=== PATIENT | female | born 1960 | race African-American/Black ===

== ENCOUNTER 2018-09-23 22:50 | Inpatient (IN) | payer MEDICAID ==
[~2018-09-23] VITALS: Ht 149.9 cm; Wt 61.7 kg
[~2018-09-23 22:50] MED LIST: ARIP20TA2 PO; COR6 PO; MIRT30TA PO
[2018-09-23] MEDS ORDERED: METHYLPREDNISOLONE SOD SUCC 125 MG/2 ML VIAL IV STA (22:53)
[2018-09-23] MEDS ORDERED: ALBUTEROL (0.083%) 2.5MG/3ML NEB HHN STA (22:53)
[2018-09-23] MEDS ORDERED: IPRATROPIUM BROMIDE (0.02%) 0.5MG/2.5ML NEB HHN STA (22:53)
[2018-09-23] MEDS ORDERED: MAGNESIUM 2 G PREMIX 50 ML IV ONE (23:00)
[2018-09-24 00:20] LABS: HEMATOCRIT 40.9 % (36.0-48.0); HEMOGLOBIN 12.8 g/dL (12.0-16.0); MEAN CORPUSCULAR VOLUME 83.6 fL (81.0-99.0); PLATELET 228 x1000/uL (130-400); RED CELL DISTRIBUTION WIDTH 22.3 % (11.6-14.6)
[2018-09-24 00:30] LABS: CHLORIDE 103 mEq/L (98-107)
[2018-09-24] MEDS ORDERED: ASPIRIN 325MG EC TABLET PO ONE (00:45)
[2018-09-24] MEDS ORDERED: AZITHROMYCIN 500 MG in DEXT 5% WATER 250 ML IV SCH (01:00)
[2018-09-24] MEDS ORDERED: VANCOMYCIN 1 G PREMIX 200 ML IV SCH (01:00)
[2018-09-24] MEDS ORDERED: CEFEPIME HCL 2000MG/VIAL INJ IV ONE (01:00)
[2018-09-24] MEDS ORDERED: IPRATROPIUM BROMIDE (0.02%) 0.5MG/2.5ML NEB HHN STA (02:20)
[2018-09-24] MEDS ORDERED: ALBUTEROL (0.083%) 2.5MG/3ML NEB HHN STA (02:20)
[2018-09-24] MEDS ORDERED: CEFEPIME 2,000 MG in DEXT 5% WATER 100 ML IV SCH (03:00)
[2018-09-24] MEDS ORDERED: CEFEPIME 2,000 MG in DEXTROSE 5% WATER 50 ML IV SCH (03:00)
[2018-09-24 06:25] VITALS: BP 137/89
[2018-09-24 07:00] VITALS: BP 143/93
[2018-09-24 08:00] VITALS: BP 143/93
[2018-09-24] MEDS ORDERED: DIGO125T82 MT (08:25)
[2018-09-24] MEDS ORDERED: ISOS10TA2 MT (08:25)
[2018-09-24] MEDS ORDERED: FURO40TA5 PO (08:25)
[2018-09-24] MEDS ORDERED: atrovastatin PO (08:25)
[2018-09-24] MEDS ORDERED: SPIR25TA6 MT (08:25)
[2018-09-24] MEDS ORDERED: ASPI-1159 MT (08:25)
[2018-09-24] MEDS ORDERED: HYDR-4134 PO (08:25)
[2018-09-24] MEDS ORDERED: MOME13HF INH (08:25)
[2018-09-24] MEDS ORDERED: CLONIDINE 0.1MG TABLET PO PRN (08:45)
[2018-09-24] MEDS ORDERED: ONDANSETRON HCL 4MG/2ML INJ IV PRN (08:45)
[2018-09-24] MEDS ORDERED: MEDICATION NOT ON FORMULARY EA (Hydralazine Hcl 25 MG) PO SCH (08:45)
[2018-09-24] MEDS ORDERED: DIPHENHYDRAMINE 50MG/ML VIAL IV PRN (08:45)
[2018-09-24] MEDS ORDERED: ISOSORBIDE DINITRATE MT PRN (08:45)
[2018-09-24] MEDS ORDERED: ENOXAPARIN 40MG/0.4ML SYR SUBCUT SCH (08:45)
[2018-09-24] MEDS ORDERED: LORAZEPAM 2MG/ML CPJ IV PRN (08:45)
[2018-09-24] MEDS ORDERED: MAGNESIUM/ALUMINUM HYDROXIDE/SIMETHICONE 30ML UDC PO PRN (08:45)
[2018-09-24] MEDS ORDERED: DOCUSATE SODIUM 100MG CAPSULE PO PRN (08:45)
[2018-09-24] MEDS ORDERED: MEDICATION NOT ON FORMULARY EA (Aripiprazole (Abilify) 1 TAB) PO SCH (09:00)
[2018-09-24] MEDS ORDERED: FORMOTEROL INH SCH (09:00)
[2018-09-24] MEDS: ASPIRIN 81MG TABLET PO SCH (09:00)
[2018-09-24] MEDS ORDERED: MOMETASONE INH SCH (09:00)
[2018-09-24] MEDS ORDERED: [UNRECOGNIZED DRUG - OTHER] INH SCH (09:00)
[2018-09-24] MEDS ORDERED: MEDICATION NOT ON FORMULARY EA (Aspirin (Aspirin Low Dose) 1 TAB) MT SCH (09:00)
[2018-09-24] MEDS: CARVEDILOL 6.25 MG TABLET PO SCH (09:49)
[2018-09-24] MEDS: ISOSORBIDE DINITRATE 10MG TABLET PO SCH ×2 (09:50→17:33)
[2018-09-24] MEDS: HYDRALAZINE HCL 25MG TABLET PO SCH ×3 (09:50→21:06)
[2018-09-24] MEDS ORDERED: PIPERACILLIN/TAZ 3.375G PREMIX 50 ML IV SCH (10:00)
[2018-09-24] MEDS: METHYLPREDNISOLONE SOD SUCC 40 MG/ML VIAL IV SCH ×2 (11:04→17:34)
[2018-09-24] MEDS: GUAIFENESIN 200MG/10ML SUGAR FREE UDC PO PRN ×2 (11:04→18:03)
[2018-09-24] MEDS: ENOXAPARIN 40MG/0.4ML SYR SUBCUT SCH (11:06)
[2018-09-24 12:00] VITALS: BP 132/74
[2018-09-24] MEDS: ARIPIPRAZOLE 10MG TABLET PO SCH (13:20)
[2018-09-24] MEDS: ACETAMINOPHEN 325MG TABLET PO PRN ×2 (14:43→14:45)
[2018-09-24 16:00] VITALS: BP 132/52
[2018-09-24 16:11] LABS: CLARITY URINE CLEAR (CLEAR); COLOR URINE YELLOW (YELLOW); KETONES URINE NEGATIVE (NEGATIVE); LEUKOCYTE ESTERASE URINE NEGATIVE (NEGATIVE); NITRITE URINE NEGATIVE (NEGATIVE); OCCULT BLOOD URINE NEGATIVE (NEGATIVE); PROTEIN URINE TRACE (NEGATIVE); SPECIFIC GRAVITY URINE 1.011 (1.005-1.030); UROBILINOGEN URINE 0.2 E.U./dL (0.2-1.0)
[2018-09-24 16:29] LABS: *AMPHETAMINES SCREEN URINE NEGATIVE (NEGATIVE); *BARBITURATES SCREEN URINE NEGATIVE (NEGATIVE); *BENZODIAZEPINES SCREEN URINE NEGATIVE (NEGATIVE)
[2018-09-24 16:30] LABS: *COCAINE SCREEN URINE PRESUMTIVE POSITIVE (NEGATIVE); CANNABINOID URINE SCREEN NEGATIVE (NEGATIVE); METHADONE URINE SCREEN NEGATIVE (NEGATIVE); OPIATES URINE SCREEN NEGATIVE (NEGATIVE); PHENCYCLIDINE URINE SCREEN NEGATIVE (NEGATIVE)
[2018-09-24] MEDS ORDERED: HYDROCODONE/ACETAMINOPHEN 5/325MG TABLET PO PRN (16:45)
[2018-09-24] MEDS ORDERED: MIRTAZAPINE PO SCH (17:00)
[2018-09-24] MEDS: MONTELUKAST SODIUM 10MG TABLET PO SCH (17:33)
[2018-09-24] MEDS: DIGOXIN 125MCG TABLET PO SCH (17:34)
[2018-09-24] MEDS: IPRATROPIUM/ALBUTEROL 0.5-3(2.5)MG/3ML NEB INH PRN ×2 (18:05→20:30)
[2018-09-24 20:00] VITALS: BP 146/89
[2018-09-24] MEDS: ALBUTEROL (0.083%) 2.5MG/3ML NEB HHN SCH (20:32)
[2018-09-24] MEDS: BUDESONIDE 0.5MG/2ML NEB HHN SCH (20:32)
[2018-09-24] MEDS ORDERED: ATROVASTATIN PO SCH (21:00)
[2018-09-24] MEDS: ATORVASTATIN CALCIUM 40MG TABLET PO SCH (21:06)
[2018-09-24] MEDS: MIRTAZAPINE 30MG TABLET PO SCH (21:06)
[2018-09-24] MEDS: PIPERACILLIN/TAZ 3.375G PREMIX 50 ML IV SCH (21:06)
[2018-09-25 00:45] VITALS: BP 157/102
[2018-09-25] MEDS: METHYLPREDNISOLONE SOD SUCC 40 MG/ML VIAL IV SCH ×3 (02:33→21:13)
[2018-09-25 04:00] VITALS: BP 153/88
[2018-09-25] MEDS: ALBUTEROL (0.083%) 2.5MG/3ML NEB HHN SCH ×2 (04:36→07:33)
[2018-09-25] MEDS: PIPERACILLIN/TAZ 3.375G PREMIX 50 ML IV SCH ×3 (05:21→21:13)
[2018-09-25] MEDS: HYDRALAZINE HCL 25MG TABLET PO SCH ×3 (05:21→21:14)
[2018-09-25] MEDS: BUDESONIDE 0.5MG/2ML NEB HHN SCH ×2 (07:32→19:49)
[2018-09-25 08:00] VITALS: BP 145/86
[2018-09-25] MEDS: ENOXAPARIN 40MG/0.4ML SYR SUBCUT SCH ×2 (09:00→09:51)
[2018-09-25] MEDS ORDERED: ARIPIPRAZOLE 10MG TABLET PO SCH (09:00)
[2018-09-25] MEDS: ISOSORBIDE DINITRATE 10MG TABLET PO SCH ×2 (09:00→17:47)
[2018-09-25 09:29] LABS: BG BASE EXCESS 6.2 mmol/L (-2.0-2.0); BG CARBOXYHEMOGLOBIN 0.7 % (0.5-1.5); BG DEOXYHEMOGLOBIN 10.3 % (0.0-5.0); BG FRACTION INSPIRED OXYGEN 24; BG HCO3 ACT 32.5 mmol/L (22.0-26.0); BG METHEMOGLOBIN 0.3 % (0.0-1.5); BG OXYGEN SATURATION 89.6 % (92.0-98.5); BG OXYHEMOGLOBIN 88.7 % (94.0-97.0); BG SAMPLE SITE RIGHT BRACHIAL; BG TOTAL HEMOGLOBIN 12.2 g/dL (12.0-18.0); BG VENT MODE NASAL CANNULA
[2018-09-25] MEDS: CARVEDILOL 6.25 MG TABLET PO SCH (09:49)
[2018-09-25] MEDS: ARIPIPRAZOLE 10MG TABLET PO SCH (09:50)
[2018-09-25] MEDS: POTASSIUM CHLORIDE 10MEQ TABLET SR PO SCH (09:50)
[2018-09-25] MEDS: LISINOPRIL 20MG TABLET PO SCH (09:50)
[2018-09-25] MEDS: ASPIRIN 81MG TABLET PO SCH (09:50)
[2018-09-25] MEDS: GUAIFENESIN 200MG/10ML SUGAR FREE UDC PO PRN (09:51)
[2018-09-25] MEDS: FUROSEMIDE 40MG/4ML VIAL IVP SCH (09:51)
[2018-09-25 12:00] VITALS: BP 148/86
[2018-09-25] MEDS: NICOTINE 14MG PATCH TD SCH (14:40)
[2018-09-25] MEDS: IPRATROPIUM/ALBUTEROL 0.5-3(2.5)MG/3ML NEB HHN SCH ×2 (15:44→19:49)
[2018-09-25 16:00] VITALS: BP 146/88
[2018-09-25 17:22] LABS: HEMATOCRIT. 35.5 % (36.0-48.0); HEMOGLOBIN. 11.4 g/dL (12.0-16.0); MEAN CORPUSCULAR HEMOGLOBIN 26.6 pg (28.0-32.0); PLATELET 171 x1000/uL (130-400); RED BLOOD CELL COUNT 4.27 mill/uL (4.2-5.4); RED CELL DISTRIBUTION WIDTH 21.9 % (11.6-14.6)
[2018-09-25] MEDS: DIGOXIN 125MCG TABLET PO SCH (17:47)
[2018-09-25] MEDS: MONTELUKAST SODIUM 10MG TABLET PO SCH (17:47)
[2018-09-25 18:09] LABS: PLATELET ESTIMATE NORMAL
[2018-09-25 20:00] VITALS: BP 134/74
[2018-09-25] MEDS: MIRTAZAPINE 30MG TABLET PO SCH (21:14)
[2018-09-25] MEDS: ATORVASTATIN CALCIUM 40MG TABLET PO SCH (21:14)
[2018-09-26] VITALS (7 sets, daily range): BP systolic 119–163; BP diastolic 67–106
[2018-09-26] MEDS: IPRATROPIUM/ALBUTEROL 0.5-3(2.5)MG/3ML NEB HHN SCH ×7 (00:16→20:00)
[2018-09-26] MEDS: PIPERACILLIN/TAZ 3.375G PREMIX 50 ML IV SCH ×3 (05:05→21:38)
[2018-09-26] MEDS: HYDRALAZINE HCL 25MG TABLET PO SCH ×3 (05:05→21:37)
[2018-09-26 08:05] LABS: HEMOGLOBIN. 11.8 g/dL (12.0-16.0); MEAN CORPUSCULAR HEMOGLOBIN 26.3 pg (28.0-32.0); MEAN CORPUSCULAR VOLUME 82.6 fL (81.0-99.0); MEAN PLATELET VOLUME 8.7 fl (7.4-10.4); PLATELET 178 x1000/uL (130-400); RED BLOOD CELL COUNT 4.48 mill/uL (4.2-5.4); RED CELL DISTRIBUTION WIDTH 21.6 % (11.6-14.6)
[2018-09-26] MEDS: BUDESONIDE 0.5MG/2ML NEB HHN SCH ×2 (09:06→20:29)
[2018-09-26 09:31] LABS: BG BASE EXCESS 7.3 mmol/L (-2.0-2.0); BG CARBOXYHEMOGLOBIN 0.9 % (0.5-1.5); BG DEOXYHEMOGLOBIN 11.8 % (0.0-5.0); BG FRACTION INSPIRED OXYGEN 21; BG METHEMOGLOBIN 0.2 % (0.0-1.5); BG OXYGEN SATURATION 88.1 % (92.0-98.5); BG OXYHEMOGLOBIN 87.1 % (94.0-97.0); BG PCO2 50.9 mmHg (35.0-45.0); BG PH 7.429 (7.350-7.450); BG SAMPLE SITE LEFT BRACHIAL; BG TOTAL HEMOGLOBIN 12.6 g/dL (12.0-18.0); BG VENT MODE ROOM AIR
[2018-09-26 10:08] LABS: PLATELET ESTIMATE NORMAL
[2018-09-26] MEDS: ISOSORBIDE DINITRATE 10MG TABLET PO SCH ×2 (11:02→19:43)
[2018-09-26] MEDS: METHYLPREDNISOLONE SOD SUCC 40 MG/ML VIAL IV SCH ×2 (11:02→19:44)
[2018-09-26] MEDS: POTASSIUM CHLORIDE 10MEQ TABLET SR PO SCH (11:02)
[2018-09-26] MEDS: ASPIRIN 81MG TABLET PO SCH (11:02)
[2018-09-26] MEDS: CARVEDILOL 6.25 MG TABLET PO SCH (11:02)
[2018-09-26] MEDS: LISINOPRIL 20MG TABLET PO SCH (11:03)
[2018-09-26] MEDS: FUROSEMIDE 40MG/4ML VIAL IVP SCH ×2 (11:03→19:44)
[2018-09-26] MEDS: ARIPIPRAZOLE 10MG TABLET PO SCH (11:03)
[2018-09-26] MEDS: NICOTINE 14MG PATCH TD SCH (11:04)
[2018-09-26] MEDS: ENOXAPARIN 40MG/0.4ML SYR SUBCUT SCH (11:05)
[2018-09-26] MEDS ORDERED: TERBUTALINE SULFATE 1MG/ML VIAL SUBCUT SCH (11:20)
[2018-09-26] MEDS: THEOPHYLLINE ANHYDROUS 80 MG/15 ML 120ML PO SCH ×2 (11:24→22:27)
[2018-09-26] MEDS ORDERED: BENZONATATE 100MG CAPSULE PO PRN (11:30)
[2018-09-26] MEDS: DIGOXIN 125MCG TABLET PO SCH (19:43)
[2018-09-26] MEDS: MONTELUKAST SODIUM 10MG TABLET PO SCH (19:43)
[2018-09-26] MEDS: ATORVASTATIN CALCIUM 40MG TABLET PO SCH (21:37)
[2018-09-26] MEDS: MIRTAZAPINE 30MG TABLET PO SCH (21:37)
[2018-09-27] VITALS: BP 126/74
[2018-09-27] MEDS: IPRATROPIUM/ALBUTEROL 0.5-3(2.5)MG/3ML NEB HHN SCH ×3 (00:59→07:53)
[2018-09-27] MEDS: METHYLPREDNISOLONE SOD SUCC 40 MG/ML VIAL IV SCH (02:08)
[2018-09-27 04:00] VITALS: BP 142/77
[2018-09-27] MEDS: PIPERACILLIN/TAZ 3.375G PREMIX 50 ML IV SCH (06:12)
[2018-09-27] MEDS: HYDRALAZINE HCL 25MG TABLET PO SCH (06:12)
[2018-09-27] MEDS: FUROSEMIDE 40MG/4ML VIAL IVP SCH ×2 (06:12→06:27)
[2018-09-27 06:29] LABS: CHLORIDE 99 mEq/L (98-107)
[2018-09-27 06:41] LABS: HEMATOCRIT. 38.3 % (36.0-48.0); HEMOGLOBIN. 12.5 g/dL (12.0-16.0); MEAN CORPUSCULAR HEMOGLOBIN 26.7 pg (28.0-32.0); MEAN CORPUSCULAR VOLUME 81.9 fL (81.0-99.0); MEAN PLATELET VOLUME 8.6 fl (7.4-10.4); PLATELET 188 x1000/uL (130-400); RED BLOOD CELL COUNT 4.67 mill/uL (4.2-5.4); RED CELL DISTRIBUTION WIDTH 21.8 % (11.6-14.6)
[2018-09-27 07:01] LABS: DIGOXIN 0.8 ng/mL (0.9-2.0)
[2018-09-27] MEDS: BUDESONIDE 0.5MG/2ML NEB HHN SCH (07:54)
[2018-09-27 09:42] VITALS: BP 132/66
[2018-09-27 12:48] LABS: PLATELET ESTIMATE NORMAL
== END 2018-09-27 09:42 | disposition home or self-care (01) | DRG 816 ==
LOC: ER 23:20 → 6WST 09-24 02:21 → EDBEDREQTM 09-24 02:23 → EDBEDREQ 09-24 02:23 → ENRESERV 09-24 03:18
PROVIDERS: ADMIT Internal Medicine Geriatric Medicine; ATTEND Internal Medicine Geriatric Medicine
DX: T40.5X4A Poisoning by cocaine, undetermined, initial encounter (principal); J96.00 Acute respiratory failure, unspecified whether with hypoxia or hypercapnia; I50.23 Acute on chronic systolic (congestive) heart failure; N17.9 Acute kidney failure, unspecified; I11.0 Hypertensive heart disease with heart failure; I42.0 Dilated cardiomyopathy; J68.0 Bronchitis and pneumonitis due to chemicals, gases, fumes and vapors; J44.1 Chronic obstructive pulmonary disease with (acute) exacerbation; I34.0 Nonrheumatic mitral (valve) insufficiency; F31.9 Bipolar disorder, unspecified; D64.9 Anemia, unspecified; E78.5 Hyperlipidemia, unspecified; M54.9 Dorsalgia, unspecified; F14.10 Cocaine abuse, uncomplicated; F17.210 Nicotine dependence, cigarettes, uncomplicated; G89.29 Other chronic pain; E86.0 Dehydration; F41.9 Anxiety disorder, unspecified; Z60.2 Problems related to living alone; Z91.19 Patient's noncompliance with other medical treatment and regimen; Z88.6 Allergy status to analgesic agent; Z79.899 Other long term (current) drug therapy; Y92.89 Other specified places as the place of occurrence of the external cause; Z71.6 Tobacco abuse counseling
CPT/HCPCS: 36415; 36600; 71045; 80048; 80061; 80162; 80305; 82375; 82805; 83735; 83880; 84484; 85027; 93005; 93306; 93970; 94640; 94644; 96365; 96366; 96375; 97162; 99291; J0456; J0692; J1650; J1940; J2543; J2920; J2930; J3105; J3370; J3475; J7040; J7050; J7060; J7611; J7620; J7626

== ENCOUNTER 2018-10-31 11:09 | Inpatient (IN) | payer MEDICAID ==
[~2018-10-31] VITALS: Ht 149.9 cm; Wt 63.5 kg
[~2018-10-31 11:09] MED LIST changes: +ASPI-1159 MT; +DIGO125T82 MT; +FURO40TA5 PO; +HYDR-4134 PO; +ISOS10TA2 MT; +MOME13HF INH; +SPIR25TA6 MT; +atrovastatin PO
[2018-10-31] MEDS ORDERED: ALBUTEROL (0.083%) 2.5MG/3ML NEB HHN STA (11:40)
[2018-10-31] MEDS ORDERED: LEVOFLOXACIN 750MG PREMIX 150 ML IV STA (11:40)
[2018-10-31] MEDS ORDERED: IPRATROPIUM BROMIDE (0.02%) 0.5MG/2.5ML NEB HHN STA (11:40)
[2018-10-31] MEDS ORDERED: METHYLPREDNISOLONE SOD SUCC 125 MG/2 ML VIAL IV STA (11:40)
[2018-10-31] MEDS ORDERED: ONDANSETRON HCL 4MG/2ML INJ IV ONE (11:45)
[2018-10-31] MEDS ORDERED: LORAZEPAM 2MG/ML CPJ IV ONE (12:15)
[2018-10-31 13:00] LABS: HEMATOCRIT. 40.9 % (36.0-48.0); HEMOGLOBIN. 12.7 g/dL (12.0-16.0); MEAN CORPUSCULAR HEMOGLOBIN 26.6 pg (28.0-32.0); MEAN CORPUSCULAR VOLUME 85.6 fL (81.0-99.0); MEAN PLATELET VOLUME 8.8 fl (7.4-10.4); PLATELET 148 x1000/uL (130-400); RED BLOOD CELL COUNT 4.77 mill/uL (4.2-5.4); RED CELL DISTRIBUTION WIDTH 20.2 % (11.6-14.6)
[2018-10-31 13:07] LABS: CHLORIDE 104 mEq/L (98-107); INR 1.8; PROTHROMBIN TIME 17.9 sec (9.1-11.1)
[2018-10-31 13:16] LABS: PLATELET ESTIMATE NORMAL
[2018-10-31] MEDS ORDERED: FUROSEMIDE 40MG/4ML VIAL IVP ONE (14:45)
[2018-10-31] MEDS ORDERED: ASPIRIN 325MG TABLET PO ONE (15:00)
[2018-10-31] MEDS ORDERED: ACETAMINOPHEN 325MG TABLET PO PRN (20:15)
[2018-10-31] MEDS ORDERED: IPRATROPIUM/ALBUTEROL 0.5-3(2.5)MG/3ML NEB INH PRN (20:15)
[2018-10-31 21:30] VITALS: BP 109/65
[2018-10-31] MEDS: HYDRALAZINE HCL 25MG TABLET PO SCH (22:00)
[2018-10-31] MEDS: MIRTAZAPINE 30MG TABLET PO SCH (22:03)
[2018-10-31] MEDS ORDERED: BUDESONIDE 0.5MG/2ML NEB HHN SCH ×2 (22:30)
[2018-11-01] VITALS (7 sets, daily range): BP systolic 108–139; BP diastolic 67–102
[2018-11-01] MEDS: IPRATROPIUM/ALBUTEROL 0.5-3(2.5)MG/3ML NEB HHN SCH ×7 (00:44→22:43)
[2018-11-01] MEDS: BUDESONIDE 0.5MG/2ML NEB HHN SCH ×3 (00:44→22:43)
[2018-11-01 03:52] LABS: CLARITY URINE CLEAR (CLEAR); COLOR URINE YELLOW (YELLOW); KETONES URINE NEGATIVE (NEGATIVE); LEUKOCYTE ESTERASE URINE NEGATIVE (NEGATIVE); NITRITE URINE NEGATIVE (NEGATIVE); OCCULT BLOOD URINE NEGATIVE (NEGATIVE); PROTEIN URINE NEGATIVE (NEGATIVE)
[2018-11-01 04:19] LABS: *AMPHETAMINES SCREEN URINE NEGATIVE (NEGATIVE); *BARBITURATES SCREEN URINE NEGATIVE (NEGATIVE); *BENZODIAZEPINES SCREEN URINE NEGATIVE (NEGATIVE); *COCAINE SCREEN URINE PRESUMTIVE POSITIVE (NEGATIVE)
[2018-11-01 04:21] LABS: CANNABINOID URINE SCREEN PRESUMTIVE POSITIVE (NEGATIVE); METHADONE URINE SCREEN NEGATIVE (NEGATIVE); OPIATES URINE SCREEN NEGATIVE (NEGATIVE); PHENCYCLIDINE URINE SCREEN NEGATIVE (NEGATIVE)
[2018-11-01] MEDS: HYDRALAZINE HCL 25MG TABLET PO SCH ×3 (06:00→23:32)
[2018-11-01 07:54] LABS: BG BASE EXCESS 1.9 mmol/L (-2.0-2.0); BG CARBOXYHEMOGLOBIN 0.4 % (0.5-1.5); BG DEOXYHEMOGLOBIN 12.8 % (0.0-5.0); BG HCO3 ACT 28.2 mmol/L (22.0-26.0); BG METHEMOGLOBIN 0.4 % (0.0-1.5); BG OXYGEN SATURATION 87.1 % (92.0-98.5); BG OXYHEMOGLOBIN 86.4 % (94.0-97.0); BG PCO2 52.1 mmHg (35.0-45.0); BG PH 7.352 (7.350-7.450); BG PO2 56.1 mmHg (75.0-100.0); BG SAMPLE SITE RIGHT RADIAL; BG TOTAL HEMOGLOBIN 11.5 g/dL (12.0-18.0); BG VENT MODE ROOM AIR
[2018-11-01] MEDS ORDERED: CARVEDILOL 6.25 MG TABLET PO SCH (09:00)
[2018-11-01] MEDS ORDERED: FUROSEMIDE 20MG TABLET PO SCH (09:00)
[2018-11-01] MEDS: ISOSORBIDE DINITRATE 10MG TABLET PO SCH ×2 (09:45→20:43)
[2018-11-01] MEDS: ARIPIPRAZOLE 10MG TABLET PO SCH (09:45)
[2018-11-01] MEDS: ASPIRIN 81MG TABLET PO SCH (09:45)
[2018-11-01] MEDS: SPIRONOLACTONE 25MG TABLET PO SCH (09:45)
[2018-11-01] MEDS: ENOXAPARIN 40MG/0.4ML SYR SUBCUT SCH (09:46)
[2018-11-01] MEDS: FAMOTIDINE 20MG TABLET PO SCH ×2 (09:46→20:43)
[2018-11-01] MEDS: SODIUM CHLORIDE 0.9% INJ 3ML FLUSH IVF SCH ×3 (09:47→20:44)
[2018-11-01] MEDS ORDERED: GUAIFENESIN-DM 200MG-20MG/10ML UDC PO PRN (10:45)
[2018-11-01] MEDS: DIGOXIN 125MCG TABLET PO SCH (17:28)
[2018-11-01] MEDS: FUROSEMIDE 40MG/4ML VIAL IVP SCH (20:42)
[2018-11-01] MEDS: ATORVASTATIN CALCIUM 40MG TABLET PO SCH (20:43)
[2018-11-01] MEDS: MIRTAZAPINE 30MG TABLET PO SCH (20:43)
[2018-11-01] MEDS: GUAIFENESIN-DM 200MG-20MG/10ML UDC PO PRN (20:48)
[2018-11-02] MEDS: IPRATROPIUM/ALBUTEROL 0.5-3(2.5)MG/3ML NEB HHN SCH ×5 (01:10→21:33)
[2018-11-02 03:46] VITALS: BP 132/93
[2018-11-02] MEDS: GUAIFENESIN-DM 200MG-20MG/10ML UDC PO PRN ×2 (06:06→10:38)
[2018-11-02] MEDS: HYDRALAZINE HCL 25MG TABLET PO SCH ×3 (06:06→22:19)
[2018-11-02] MEDS: SODIUM CHLORIDE 0.9% INJ 3ML FLUSH IVF SCH ×3 (06:07→22:21)
[2018-11-02 06:54] LABS: HEMATOCRIT. 37.2 % (36.0-48.0); HEMOGLOBIN. 11.9 g/dL (12.0-16.0); MEAN CORPUSCULAR HEMOGLOBIN 26.8 pg (28.0-32.0); MEAN CORPUSCULAR VOLUME 83.6 fL (81.0-99.0); MEAN PLATELET VOLUME 9.1 fl (7.4-10.4); PLATELET 164 x1000/uL (130-400); RED BLOOD CELL COUNT 4.45 mill/uL (4.2-5.4); RED CELL DISTRIBUTION WIDTH 20.6 % (11.6-14.6)
[2018-11-02 08:00] VITALS: BP 151/109
[2018-11-02] MEDS: ISOSORBIDE DINITRATE 10MG TABLET PO SCH ×2 (08:21→22:18)
[2018-11-02] MEDS: ARIPIPRAZOLE 10MG TABLET PO SCH (08:21)
[2018-11-02] MEDS: ASPIRIN 81MG TABLET PO SCH (08:21)
[2018-11-02] MEDS: SPIRONOLACTONE 25MG TABLET PO SCH (08:21)
[2018-11-02] MEDS: FAMOTIDINE 20MG TABLET PO SCH (08:21)
[2018-11-02] MEDS: ENOXAPARIN 40MG/0.4ML SYR SUBCUT SCH ×2 (08:22→08:26)
[2018-11-02] MEDS: FUROSEMIDE 40MG/4ML VIAL IVP SCH ×2 (08:22→09:00)
[2018-11-02] MEDS: BUDESONIDE 0.5MG/2ML NEB HHN SCH ×2 (09:25→21:33)
[2018-11-02] MEDS: LISINOPRIL 2.5MG TABLET PO SCH (10:38)
[2018-11-02 11:18] LABS: BG BASE EXCESS -2.4 mmol/L (-2.0-2.0); BG CARBOXYHEMOGLOBIN 0.9 % (0.5-1.5); BG DEOXYHEMOGLOBIN 10.1 % (0.0-5.0); BG FRACTION INSPIRED OXYGEN 21; BG HCO3 ACT 23.4 mmol/L (22.0-26.0); BG METHEMOGLOBIN 0.2 % (0.0-1.5); BG OXYGEN SATURATION 89.8 % (92.0-98.5); BG OXYHEMOGLOBIN 88.8 % (94.0-97.0); BG PCO2 44.1 mmHg (35.0-45.0); BG PH 7.342 (7.350-7.450); BG PO2 62.8 mmHg (75.0-100.0); BG SAMPLE SITE RIGHT RADIAL; BG TOTAL HEMOGLOBIN 12.4 g/dL (12.0-18.0); BG VENT MODE ROOM AIR
[2018-11-02 12:29] LABS: PLATELET ESTIMATE NORMAL
[2018-11-02 12:36] VITALS: BP 118/67
[2018-11-02] MEDS ORDERED: FUROSEMIDE 40MG TABLET PO SCH (13:00)
[2018-11-02] MEDS ORDERED: LIDOCAINE HCL/PF 1% 2ML VIAL ONE (15:11)
[2018-11-02 16:00] VITALS: BP 127/91
[2018-11-02] MEDS: DIGOXIN 125MCG TABLET PO SCH (18:34)
[2018-11-02 20:48] VITALS: BP 150/97
[2018-11-02] MEDS: AMOXICILLIN 500 MG CAPSULE PO SCH (22:18)
[2018-11-02] MEDS: MIRTAZAPINE 30MG TABLET PO SCH (22:18)
[2018-11-02] MEDS: ATORVASTATIN CALCIUM 40MG TABLET PO SCH (22:19)
[2018-11-03 00:23] VITALS: BP 133/81
[2018-11-03] MEDS: IPRATROPIUM/ALBUTEROL 0.5-3(2.5)MG/3ML NEB HHN SCH ×4 (00:48→10:56)
[2018-11-03 04:00] VITALS: BP 107/62
[2018-11-03] MEDS: SODIUM CHLORIDE 0.9% INJ 3ML FLUSH IVF SCH (06:00)
[2018-11-03] MEDS: HYDRALAZINE HCL 25MG TABLET PO SCH (06:00)
[2018-11-03] MEDS: AMOXICILLIN 500 MG CAPSULE PO SCH (06:38)
[2018-11-03] MEDS: FUROSEMIDE 40MG TABLET PO SCH ×2 (06:38→06:55)
[2018-11-03] MEDS: SPIRONOLACTONE 25MG TABLET PO SCH (09:00)
[2018-11-03] MEDS ORDERED: FAMOTIDINE 20MG TABLET PO SCH (09:00)
[2018-11-03 09:10] VITALS: BP 148/87
[2018-11-03] MEDS: ISOSORBIDE DINITRATE 10MG TABLET PO SCH (09:13)
[2018-11-03] MEDS: ARIPIPRAZOLE 10MG TABLET PO SCH (09:14)
[2018-11-03] MEDS: ASPIRIN 81MG TABLET PO SCH (09:14)
[2018-11-03] MEDS: ENOXAPARIN 40MG/0.4ML SYR SUBCUT SCH (09:15)
[2018-11-03] MEDS: LISINOPRIL 2.5MG TABLET PO SCH (09:15)
[2018-11-03 10:27] VITALS: BP 148/87
[2018-11-03] MEDS: BUDESONIDE 0.5MG/2ML NEB HHN SCH (10:57)
[2018-11-03 14:24] LABS: HEMATOCRIT. 41.7 % (36.0-48.0); HEMOGLOBIN. 13.3 g/dL (12.0-16.0); MEAN CORPUSCULAR HEMOGLOBIN 26.6 pg (28.0-32.0); MEAN CORPUSCULAR VOLUME 83.2 fL (81.0-99.0); PLATELET 172 x1000/uL (130-400); RED BLOOD CELL COUNT 5.01 mill/uL (4.2-5.4); RED CELL DISTRIBUTION WIDTH 20.7 % (11.6-14.6)
[2018-11-03 16:35] LABS: PLATELET ESTIMATE NORMAL
== END 2018-11-03 13:20 | disposition home or self-care (01) | DRG 190 ==
LOC: ER 11:09 → ENRESERV 15:48 → CANRESERV 15:48 → EDRESERV 15:48 → 6WST 16:03 → EDBEDREQ 16:06 → EDBEDREQTM 16:06 → EDBEDREQSVC 16:06 → ENRESERV 20:19
PROVIDERS: ADMIT Ophthalmology; ATTEND Ophthalmology
DX: I21.4 Non-ST elevation (NSTEMI) myocardial infarction (principal); J96.01 Acute respiratory failure with hypoxia; I50.23 Acute on chronic systolic (congestive) heart failure; I13.0 Hypertensive heart and chronic kidney disease with heart failure and stage 1 through stage 4 chronic kidney disease, or unspecified chronic kidney disease; I27.81 Cor pulmonale (chronic); E78.5 Hyperlipidemia, unspecified; F14.10 Cocaine abuse, uncomplicated; F41.9 Anxiety disorder, unspecified; F19.10 Other psychoactive substance abuse, uncomplicated; J44.9 Chronic obstructive pulmonary disease, unspecified; N18.9 Chronic kidney disease, unspecified; F17.210 Nicotine dependence, cigarettes, uncomplicated; I42.0 Dilated cardiomyopathy; I08.0 Rheumatic disorders of both mitral and aortic valves; I25.2 Old myocardial infarction; Z79.899 Other long term (current) drug therapy; Z91.19 Patient's noncompliance with other medical treatment and regimen; Z88.5 Allergy status to narcotic agent
CPT/HCPCS: 36415; 36600; 71045; 74176; 80048; 80162; 80305; 82375; 82805; 83605; 83880; 84145; 84484; 85007; 85027; 87804; 93005; 94640; 96365; 96375; 99291; J1650; J1940; J1956; J2060; J2405; J2930; J3490; J7611; J7620; J7626

== ENCOUNTER 2019-01-05 08:15 | Inpatient (IN) | payer MEDICAID ==
[~2019-01-05] VITALS: Ht 149.9 cm; Wt 59.4 kg
[2019-01-05] VITALS (15 sets, daily range): BP systolic 118–149; BP diastolic 71–101
[2019-01-05 09:06] LABS: BASOPHILS % 0.2 % (0.0-2.0); HEMATOCRIT. 44.3 % (36.0-48.0); HEMOGLOBIN. 13.6 g/dL (12.0-16.0); MEAN CORPUSCULAR HEMOGLOBIN 25.3 pg (28.0-32.0); MEAN CORPUSCULAR VOLUME 82.6 fL (81.0-99.0); MEAN PLATELET VOLUME 9.5 fl (7.4-10.4); MONOCYTES % 11.9 % (2.0-8.0); NEUTROPHILS % 72.9 % (40.0-76.0); PLATELET 133 x1000/uL (130-400); RED BLOOD CELL COUNT 5.37 mill/uL (4.2-5.4); RED CELL DISTRIBUTION WIDTH 19.8 % (11.6-14.6)
[2019-01-05 09:15] LABS: CHLORIDE 105 mEq/L (98-107)
[2019-01-05 09:22] LABS: BG BASE EXCESS -1.1 mmol/L (-2.0-2.0); BG DEOXYHEMOGLOBIN 18.7 % (0.0-5.0); BG FRACTION INSPIRED OXYGEN 28; BG HCO3 ACT 27.7 mmol/L (22.0-26.0); BG METHEMOGLOBIN 0.3 % (0.0-1.5); BG OXYGEN SATURATION 81.1 % (92.0-98.5); BG PCO2 64.8 mmHg (35.0-45.0); BG PH 7.248 (7.350-7.450); BG PO2 56.2 mmHg (75.0-100.0); BG SAMPLE SITE RIGHT BRACHIAL; BG TOTAL HEMOGLOBIN 13.9 g/dL (12.0-18.0); BG VENT MODE NASAL CANNULA
[2019-01-05] MEDS ORDERED: LEVOFLOXACIN 750MG PREMIX 150 ML IV ONE (10:15)
[2019-01-05 11:00] LABS: BG BASE EXCESS -1.9 mmol/L (-2.0-2.0); BG CARBOXYHEMOGLOBIN 0.9 % (0.5-1.5); BG DEOXYHEMOGLOBIN 2.1 % (0.0-5.0); BG HCO3 ACT 26.8 mmol/L (22.0-26.0); BG METHEMOGLOBIN 0.1 % (0.0-1.5); BG OXYGEN SATURATION 97.9 % (92.0-98.5); BG OXYHEMOGLOBIN 96.9 % (94.0-97.0); BG PCO2 63.8 mmHg (35.0-45.0); BG PH 7.241 (7.350-7.450); BG SAMPLE SITE RIGHT BRACHIAL; BG TOTAL HEMOGLOBIN 13.7 g/dL (12.0-18.0); BG VENT MODE MASK - BIPAP; BG VENT RATE 18 set
[2019-01-05] MEDS ORDERED: LORAZEPAM 2MG/ML CPJ IV ONE (12:00)
[2019-01-05] MEDS ORDERED: LORAZEPAM 2MG/ML CPJ IM PRN (12:15)
[2019-01-05 13:38] LABS: INR 1.9; PARTIAL THROMBOPLASTIN TIME 31.5 sec (23.4-31.0)
[2019-01-05] MEDS ORDERED: DEXTROSE 50% WATER 50ML SYRINGE IV ONE ×3 (14:45→20:00)
[2019-01-05 15:34] LABS: BG DEOXYHEMOGLOBIN 10.4 % (0.0-5.0); BG HCO3 ACT 26.3 mmol/L (22.0-26.0); BG METHEMOGLOBIN 0.4 % (0.0-1.5); BG OXYGEN SATURATION 89.5 % (92.0-98.5); BG OXYHEMOGLOBIN 88.2 % (94.0-97.0); BG PCO2 75.5 mmHg (35.0-45.0); BG PO2 77.6 mmHg (75.0-100.0); BG SAMPLE SITE RIGHT BRACHIAL; BG TOTAL HEMOGLOBIN 13.3 g/dL (12.0-18.0); BG VENT MODE NASAL CANNULA
[2019-01-05] MEDS ORDERED: MIDAZOLAM HCL 2 MG/2 ML VIAL IV ONE (15:45)
[2019-01-05] MEDS ORDERED: ETOMIDATE 2MG/ML 10ML VIAL IV ONE (15:45)
[2019-01-05] MEDS ORDERED: MIDAZOLAM HCL 50 MG in DEXTROSE 5% WATER 40 ML IV ONE (15:45)
[2019-01-05] MEDS ORDERED: SUCCINYLCHOLINE CHLORIDE 200MG/10ML IV ONE (15:45)
[2019-01-05] MEDS ORDERED: MIDAZOLAM HCL 50 MG in DEXTROSE 5% WATER 40 ML IV NR (16:00)
[2019-01-05 19:40] LABS: *AMPHETAMINES SCREEN URINE NEGATIVE (NEGATIVE); *BARBITURATES SCREEN URINE NEGATIVE (NEGATIVE); *BENZODIAZEPINES SCREEN URINE NEGATIVE (NEGATIVE); *COCAINE SCREEN URINE PRESUMTIVE POSITIVE (NEGATIVE); METHADONE URINE SCREEN NEGATIVE (NEGATIVE)
[2019-01-05 19:41] LABS: CANNABINOID URINE SCREEN PRESUMTIVE POSITIVE (NEGATIVE); OPIATES URINE SCREEN NEGATIVE (NEGATIVE); PHENCYCLIDINE URINE SCREEN NEGATIVE (NEGATIVE)
[2019-01-05 21:47] LABS: BG BASE EXCESS 4.7 mmol/L (-2.0-2.0); BG CARBOXYHEMOGLOBIN 0.8 % (0.5-1.5); BG DEOXYHEMOGLOBIN 4.4 % (0.0-5.0); BG FRACTION INSPIRED OXYGEN 50; BG HCO3 ACT 27.3 mmol/L (22.0-26.0); BG METHEMOGLOBIN 0.2 % (0.0-1.5); BG OXYGEN SATURATION 95.6 % (92.0-98.5); BG OXYHEMOGLOBIN 94.6 % (94.0-97.0); BG PCO2 33.9 mmHg (35.0-45.0); BG PH 7.524 (7.350-7.450); BG PO2 75.4 mmHg (75.0-100.0); BG SAMPLE SITE RIGHT BRACHIAL; BG TIDAL VOLUME(mL) 500 mL; BG TOTAL HEMOGLOBIN 13.1 g/dL (12.0-18.0); BG VENT MODE VENT - A/C; BG VENT RATE 18 set
[2019-01-05] MEDS: ATORVASTATIN CALCIUM 40MG TABLET PO SCH (21:52)
[2019-01-05] MEDS: CARVEDILOL 6.25 MG TABLET PO SCH (21:52)
[2019-01-05] MEDS: SODIUM CHLORIDE 0.9% INJ 3ML FLUSH IVF SCH (21:53)
[2019-01-05] MEDS: FUROSEMIDE 20MG/2ML VIAL IVP SCH (21:53)
[2019-01-05] MEDS: PIPERACILLIN/TAZ 2.25G PREMIX 50 ML IV SCH (21:53)
[2019-01-06] VITALS (76 sets, daily range): BP systolic 58–139; BP diastolic 26–85
[2019-01-06] MEDS: BUDESONIDE 0.5MG/2ML NEB HHN SCH ×3 (00:32→20:03)
[2019-01-06 05:31] LABS: HEMATOCRIT. 43.9 % (36.0-48.0); HEMOGLOBIN. 14.1 g/dL (12.0-16.0); MEAN CORPUSCULAR HEMOGLOBIN 25.6 pg (28.0-32.0); MEAN CORPUSCULAR VOLUME 80.1 fL (81.0-99.0); MEAN PLATELET VOLUME 9.1 fl (7.4-10.4); PLATELET 110 x1000/uL (130-400); RED BLOOD CELL COUNT 5.48 mill/uL (4.2-5.4); RED CELL DISTRIBUTION WIDTH 19.6 % (11.6-14.6)
[2019-01-06] MEDS: SODIUM CHLORIDE 0.9% INJ 3ML FLUSH IVF SCH ×3 (06:04→21:55)
[2019-01-06] MEDS: PIPERACILLIN/TAZ 2.25G PREMIX 50 ML IV SCH ×3 (06:05→21:55)
[2019-01-06 06:45] LABS: DIGOXIN 0.2 ng/mL (0.9-2.0)
[2019-01-06 07:37] LABS: PLATELET ESTIMATE DECREASED
[2019-01-06] MEDS: FUROSEMIDE 20MG/2ML VIAL IVP SCH ×2 (07:44→17:57)
[2019-01-06 07:47] LABS: BG BASE EXCESS 7.4 mmol/L (-2.0-2.0); BG DEOXYHEMOGLOBIN 3.9 % (0.0-5.0); BG FRACTION INSPIRED OXYGEN 50; BG HCO3 ACT 31.1 mmol/L (22.0-26.0); BG METHEMOGLOBIN 0.3 % (0.0-1.5); BG OXYHEMOGLOBIN 94.8 % (94.0-97.0); BG PCO2 40.2 mmHg (35.0-45.0); BG PH 7.506 (7.350-7.450); BG SAMPLE SITE RIGHT BRACHIAL; BG TIDAL VOLUME(mL) 500 mL; BG TOTAL HEMOGLOBIN 12.9 g/dL (12.0-18.0); BG VENT MODE VENT - A/C; BG VENT RATE 14 set
[2019-01-06] MEDS: LORAZEPAM 0.5MG TABLET PO PRN ×5 (08:24→22:59)
[2019-01-06 09:02] LABS: INR 1.8; PROTHROMBIN TIME 17.8 sec (9.6-11.0)
[2019-01-06] MEDS: ASPIRIN 81MG TABLET PO SCH (09:04)
[2019-01-06] MEDS: ENOXAPARIN 30MG/0.3ML SYR SUBCUT SCH (09:04)
[2019-01-06] MEDS: CARVEDILOL 6.25 MG TABLET PO SCH ×2 (09:05→20:26)
[2019-01-06] MEDS: SPIRONOLACTONE 25MG TABLET PO SCH (09:05)
[2019-01-06] MEDS: IPRATROPIUM/ALBUTEROL 0.5-3(2.5)MG/3ML NEB INH PRN ×3 (09:09→23:42)
[2019-01-06 10:23] LABS: CLARITY URINE CLEAR (CLEAR); COLOR URINE YELLOW (YELLOW); KETONES URINE NEGATIVE (NEGATIVE); LEUKOCYTE ESTERASE URINE NEGATIVE (NEGATIVE); NITRITE URINE NEGATIVE (NEGATIVE); OCCULT BLOOD URINE 2+ (NEGATIVE); PH URINE 5.5 (4.5-8.0); PROTEIN URINE NEGATIVE (NEGATIVE); SPECIFIC GRAVITY URINE 1.008 (1.005-1.030); UROBILINOGEN URINE 0.2 E.U./dL (0.2-1.0)
[2019-01-06] MEDS ORDERED: DEXTROSE 50% WATER 50ML SYRINGE IV ONE (14:37)
[2019-01-06] MEDS: DEXTROSE 5% WATER 1,000 ML IV SCH (15:15)
[2019-01-06] MEDS ORDERED: PHYTONADIONE 10MG/ML AMP SUBCUT NR (16:45)
[2019-01-06] MEDS: BLOOD SUGAR DIAGNOSTIC STRIP TEST SCH ×2 (18:00→23:27)
[2019-01-06] MEDS: DIGOXIN 125MCG TABLET PO SCH (19:53)
[2019-01-06] MEDS: ATORVASTATIN CALCIUM 40MG TABLET PO SCH (20:25)
[2019-01-06] MEDS: DEXTROSE 50% WATER 50ML SYRINGE IV PRN (23:27)
[2019-01-07] VITALS (52 sets, daily range): BP systolic 34–169; BP diastolic 19–139
[2019-01-07] MEDS: LORAZEPAM 0.5MG TABLET PO PRN ×2 (01:07→20:23)
[2019-01-07] MEDS: IPRATROPIUM/ALBUTEROL 0.5-3(2.5)MG/3ML NEB INH PRN ×2 (04:11→20:10)
[2019-01-07] MEDS: BLOOD SUGAR DIAGNOSTIC STRIP TEST SCH ×3 (05:21→17:42)
[2019-01-07] MEDS: SODIUM CHLORIDE 0.9% INJ 3ML FLUSH IVF SCH ×3 (05:22→21:50)
[2019-01-07] MEDS: DEXTROSE 50% WATER 50ML SYRINGE IV PRN ×2 (05:22→17:42)
[2019-01-07] MEDS: PIPERACILLIN/TAZ 2.25G PREMIX 50 ML IV SCH ×3 (05:22→21:50)
[2019-01-07 05:48] LABS: HEMATOCRIT. 35.7 % (36.0-48.0); HEMOGLOBIN. 11.5 g/dL (12.0-16.0); MEAN CORPUSCULAR HEMOGLOBIN 25.4 pg (28.0-32.0); MEAN CORPUSCULAR VOLUME 78.6 fL (81.0-99.0); MEAN PLATELET VOLUME 8.9 fl (7.4-10.4); PLATELET 92 x1000/uL (130-400); RED BLOOD CELL COUNT 4.55 mill/uL (4.2-5.4); RED CELL DISTRIBUTION WIDTH 19.8 % (11.6-14.6)
[2019-01-07 07:17] LABS: PHOSPHORUS 2.7 mg/dL (2.5-4.9)
[2019-01-07 07:58] LABS: BG BASE EXCESS 10.1 mmol/L (-2.0-2.0); BG CARBOXYHEMOGLOBIN 0.8 % (0.5-1.5); BG FRACTION INSPIRED OXYGEN 50; BG HCO3 ACT 34.8 mmol/L (22.0-26.0); BG METHEMOGLOBIN 0.3 % (0.0-1.5); BG OXYHEMOGLOBIN 94.9 % (94.0-97.0); BG PCO2 47.3 mmHg (35.0-45.0); BG PH 7.485 (7.350-7.450); BG PO2 85.4 mmHg (75.0-100.0); BG SAMPLE SITE RIGHT RADIAL; BG TIDAL VOLUME(mL) 500 mL; BG TOTAL HEMOGLOBIN 12.1 g/dL (12.0-18.0); BG VENT MODE VENT - A/C; BG VENT RATE 14 set
[2019-01-07] MEDS: FUROSEMIDE 20MG/2ML VIAL IVP SCH ×2 (08:06→16:25)
[2019-01-07] MEDS: PANTOPRAZOLE SODIUM 40 MG/VIAL IV SCH (08:06)
[2019-01-07] MEDS: OLANZAPINE 5MG TABLET PO SCH (08:52)
[2019-01-07] MEDS: ASPIRIN 81MG TABLET PO SCH (08:52)
[2019-01-07] MEDS: SPIRONOLACTONE 25MG TABLET PO SCH (08:52)
[2019-01-07] MEDS: CARVEDILOL 6.25 MG TABLET PO SCH ×2 (08:53→21:49)
[2019-01-07] MEDS: ENOXAPARIN 30MG/0.3ML SYR SUBCUT SCH (08:54)
[2019-01-07] MEDS: DEXTROSE 5% WATER 1,000 ML IV SCH (08:55)
[2019-01-07 09:30] LABS: NUCLEATED RED BLOOD CELLS 1 /100 WBC
[2019-01-07 09:31] LABS: PLATELET ESTIMATE DECREASED
[2019-01-07 10:54] LABS: BG BASE EXCESS 12.3 mmol/L (-2.0-2.0); BG CARBOXYHEMOGLOBIN 0.3 % (0.5-1.5); BG DEOXYHEMOGLOBIN 1.7 % (0.0-5.0); BG FRACTION INSPIRED OXYGEN 50; BG HCO3 ACT 39.7 mmol/L (22.0-26.0); BG METHEMOGLOBIN 0.3 % (0.0-1.5); BG OXYGEN SATURATION 98.3 % (92.0-98.5); BG OXYHEMOGLOBIN 97.7 % (94.0-97.0); BG PCO2 67.4 mmHg (35.0-45.0); BG PH 7.388 (7.350-7.450); BG PO2 138.8 mmHg (75.0-100.0); BG PRESSURE SUPPORT 8; BG SAMPLE SITE RIGHT RADIAL; BG TOTAL HEMOGLOBIN 11.5 g/dL (12.0-18.0); BG VENT MODE VENT - CPAP
[2019-01-07] MEDS ORDERED: POTASSIUM CHLORIDE 20MEQ TABLET SR PO SCH (14:00)
[2019-01-07] MEDS: DIGOXIN 125MCG TABLET PO SCH (17:42)
[2019-01-07] MEDS: BUDESONIDE 0.5MG/2ML NEB HHN SCH (20:09)
[2019-01-07] MEDS: ATORVASTATIN CALCIUM 40MG TABLET PO SCH (21:49)
[2019-01-07] MEDS ORDERED: MORPHINE SULFATE 2 MG/ML CPJ (NOT FOR IM USE) IV PRN (22:15)
[2019-01-08] VITALS (63 sets, daily range): BP systolic 90–182; BP diastolic 19–99
[2019-01-08] MEDS: IPRATROPIUM/ALBUTEROL 0.5-3(2.5)MG/3ML NEB INH PRN ×4 (00:13→16:45)
[2019-01-08] MEDS: BLOOD SUGAR DIAGNOSTIC STRIP TEST SCH ×4 (00:39→18:22)
[2019-01-08] MEDS: LORAZEPAM 2MG/ML CPJ IV PRN ×4 (03:29→15:29)
[2019-01-08 05:44] LABS: BASOPHILS % 0.1 % (0.0-2.0); EOSINOPHILS % 2.4 % (0.0-5.0); HEMATOCRIT. 33.2 % (36.0-48.0); HEMOGLOBIN. 10.7 g/dL (12.0-16.0); INR 1.4; LYMPHOCYTES % 13.8 % (20.0-50.0); MEAN CORPUSCULAR HEMOGLOBIN 25.3 pg (28.0-32.0); MEAN CORPUSCULAR VOLUME 78.6 fL (81.0-99.0); MEAN PLATELET VOLUME 8.6 fl (7.4-10.4); NEUTROPHILS % 70.7 % (40.0-76.0); PLATELET 74 x1000/uL (130-400); PROTHROMBIN TIME 14.6 sec (9.6-11.0); RED BLOOD CELL COUNT 4.22 mill/uL (4.2-5.4); RED CELL DISTRIBUTION WIDTH 19.4 % (11.6-14.6)
[2019-01-08 05:49] LABS: PHOSPHORUS 3.1 mg/dL (2.5-4.9)
[2019-01-08] MEDS: SODIUM CHLORIDE 0.9% INJ 3ML FLUSH IVF SCH ×3 (06:15→21:49)
[2019-01-08] MEDS: PIPERACILLIN/TAZ 2.25G PREMIX 50 ML IV SCH (06:15)
[2019-01-08] MEDS: FUROSEMIDE 20MG/2ML VIAL IVP SCH ×2 (06:19→18:24)
[2019-01-08 07:47] LABS: BG BASE EXCESS 11.5 mmol/L (-2.0-2.0); BG CARBOXYHEMOGLOBIN 0.4 % (0.5-1.5); BG HCO3 ACT 38.9 mmol/L (22.0-26.0); BG METHEMOGLOBIN 0.3 % (0.0-1.5); BG OXYHEMOGLOBIN 97.3 % (94.0-97.0); BG PCO2 66.5 mmHg (35.0-45.0); BG PH 7.385 (7.350-7.450); BG PO2 112.6 mmHg (75.0-100.0); BG SAMPLE SITE RIGHT BRACHIAL; BG TIDAL VOLUME(mL) 500 mL; BG TOTAL HEMOGLOBIN 11.4 g/dL (12.0-18.0); BG VENT MODE VENT - SIMV; BG VENT RATE 10 set
[2019-01-08] MEDS: ASPIRIN 81MG TABLET PO SCH (07:59)
[2019-01-08] MEDS: ENOXAPARIN 30MG/0.3ML SYR SUBCUT SCH (07:59)
[2019-01-08] MEDS: PANTOPRAZOLE SODIUM 40 MG/VIAL IV SCH (08:21)
[2019-01-08] MEDS: CARVEDILOL 6.25 MG TABLET PO SCH ×2 (08:21→21:44)
[2019-01-08] MEDS: SPIRONOLACTONE 25MG TABLET PO SCH (08:22)
[2019-01-08] MEDS: LORAZEPAM 1MG TABLET PO PRN ×3 (08:22→15:14)
[2019-01-08] MEDS: OLANZAPINE 5MG TABLET PO SCH (08:22)
[2019-01-08] MEDS: BUDESONIDE 0.5MG/2ML NEB HHN SCH ×3 (08:37→21:00)
[2019-01-08] MEDS ORDERED: POTASSIUM CHLORIDE 20MEQ/PACKET PO SCH (08:45)
[2019-01-08] MEDS ORDERED: MAGNESIUM 2 G PREMIX 50 ML IV SCH (09:30)
[2019-01-08] MEDS ORDERED: KCL 20MEQ/100ML PREMIX 100 ML IV SCH (09:30)
[2019-01-08] MEDS ORDERED: LIDOCAINE HCL/PF 1% 2ML VIAL ONE (11:05)
[2019-01-08] MEDS: PIPERACILLIN/TAZ 3.375G PREMIX 50 ML IV SCH ×2 (14:41→21:49)
[2019-01-08] MEDS: METHYLPREDNISOLONE SOD SUCC 40 MG/ML VIAL IV SCH (18:24)
[2019-01-08] MEDS: DIGOXIN 125MCG TABLET PO SCH (18:24)
[2019-01-08] MEDS: ATORVASTATIN CALCIUM 40MG TABLET PO SCH (21:44)
[2019-01-09] VITALS (86 sets, daily range): BP systolic 84–200; BP diastolic 26–125
[2019-01-09] MEDS: BLOOD SUGAR DIAGNOSTIC STRIP TEST SCH ×5 (00:57→23:08)
[2019-01-09] MEDS: METHYLPREDNISOLONE SOD SUCC 40 MG/ML VIAL IV SCH ×3 (00:57→18:33)
[2019-01-09] MEDS: LORAZEPAM 2MG/ML CPJ IV PRN ×2 (01:27→23:30)
[2019-01-09] MEDS: PIPERACILLIN/TAZ 3.375G PREMIX 50 ML IV SCH ×3 (05:22→21:19)
[2019-01-09] MEDS: LORAZEPAM 1MG TABLET PO PRN (05:23)
[2019-01-09] MEDS: SODIUM CHLORIDE 0.9% INJ 3ML FLUSH IVF SCH ×3 (05:23→21:19)
[2019-01-09 05:54] LABS: BASOPHILS % 0.2 % (0.0-2.0); EOSINOPHILS % 0.2 % (0.0-5.0); HEMATOCRIT. 37.3 % (36.0-48.0); HEMOGLOBIN. 12.2 g/dL (12.0-16.0); LYMPHOCYTES % 7.2 % (20.0-50.0); MEAN CORPUSCULAR HEMOGLOBIN 25.7 pg (28.0-32.0); MEAN CORPUSCULAR VOLUME 78.8 fL (81.0-99.0); MONOCYTES % 1.1 % (2.0-8.0); NEUTROPHILS % 91.3 % (40.0-76.0); RED BLOOD CELL COUNT 4.73 mill/uL (4.2-5.4); RED CELL DISTRIBUTION WIDTH 19.2 % (11.6-14.6)
[2019-01-09 05:56] LABS: CHLORIDE 96 mEq/L (98-107)
[2019-01-09] MEDS: DEXTROSE 5% WATER 1,000 ML IV SCH ×3 (06:00→22:54)
[2019-01-09 06:05] LABS: PHOSPHORUS 2.7 mg/dL (2.5-4.9)
[2019-01-09 06:59] LABS: PLATELET 63 x1000/uL (130-400)
[2019-01-09] MEDS: FUROSEMIDE 20MG/2ML VIAL IVP SCH ×2 (07:54→18:33)
[2019-01-09 08:13] LABS: BG BASE EXCESS 14.3 mmol/L (-2.0-2.0); BG CARBOXYHEMOGLOBIN 0.7 % (0.5-1.5); BG DEOXYHEMOGLOBIN 3.2 % (0.0-5.0); BG FRACTION INSPIRED OXYGEN 40; BG HCO3 ACT 40.2 mmol/L (22.0-26.0); BG METHEMOGLOBIN 0.3 % (0.0-1.5); BG OXYGEN SATURATION 96.8 % (92.0-98.5); BG OXYHEMOGLOBIN 95.8 % (94.0-97.0); BG PCO2 56.1 mmHg (35.0-45.0); BG PH 7.473 (7.350-7.450); BG PO2 87.4 mmHg (75.0-100.0); BG SAMPLE SITE RIGHT BRACHIAL; BG TIDAL VOLUME(mL) 450 mL; BG TOTAL HEMOGLOBIN 12.2 g/dL (12.0-18.0); BG VENT MODE VENT - A/C; BG VENT RATE 10 set
[2019-01-09] MEDS: IPRATROPIUM/ALBUTEROL 0.5-3(2.5)MG/3ML NEB INH PRN (08:43)
[2019-01-09] MEDS: CARVEDILOL 6.25 MG TABLET PO SCH ×2 (10:03→20:31)
[2019-01-09] MEDS: PANTOPRAZOLE SODIUM 40 MG/VIAL IV SCH (10:03)
[2019-01-09] MEDS: ASPIRIN 81MG TABLET PO SCH (10:04)
[2019-01-09] MEDS: OLANZAPINE 5MG TABLET PO SCH (10:04)
[2019-01-09] MEDS: SPIRONOLACTONE 25MG TABLET PO SCH (10:04)
[2019-01-09] MEDS: ENOXAPARIN 30MG/0.3ML SYR SUBCUT SCH (10:05)
[2019-01-09] MEDS ORDERED: KCL 20MEQ/100ML PREMIX 100 ML IV ONE (11:00)
[2019-01-09] MEDS ORDERED: POTASSIUM CHLORIDE INJ 40 MEQ in DEXT 5% WATER 250 ML IV SCH (12:00)
[2019-01-09] MEDS: IPRATROPIUM/ALBUTEROL 0.5-3(2.5)MG/3ML NEB HHN PRN ×2 (12:22→20:05)
[2019-01-09] MEDS ORDERED: MAGNESIUM 2 G PREMIX 50 ML IV NR (13:00)
[2019-01-09] MEDS: DIGOXIN 125MCG TABLET PO SCH (18:33)
[2019-01-09] MEDS: ATORVASTATIN CALCIUM 40MG TABLET PO SCH (20:31)
[2019-01-10] VITALS (46 sets, daily range): BP systolic 87–189; BP diastolic 51–111
[2019-01-10] MEDS: METHYLPREDNISOLONE SOD SUCC 40 MG/ML VIAL IV SCH ×3 (00:08→18:35)
[2019-01-10] MEDS: LORAZEPAM 2MG/ML CPJ IV PRN ×2 (00:53→01:40)
[2019-01-10] MEDS: PIPERACILLIN/TAZ 3.375G PREMIX 50 ML IV SCH ×3 (05:26→21:04)
[2019-01-10] MEDS: BLOOD SUGAR DIAGNOSTIC STRIP TEST SCH ×4 (05:27→23:12)
[2019-01-10] MEDS: SODIUM CHLORIDE 0.9% INJ 3ML FLUSH IVF SCH ×3 (05:27→21:05)
[2019-01-10 05:32] LABS: BASOPHILS % 0.1 % (0.0-2.0); HEMATOCRIT. 37.1 % (36.0-48.0); HEMOGLOBIN. 11.5 g/dL (12.0-16.0); MEAN CORPUSCULAR HEMOGLOBIN 25.1 pg (28.0-32.0); MEAN CORPUSCULAR VOLUME 80.6 fL (81.0-99.0); MONOCYTES % 2.1 % (2.0-8.0); NEUTROPHILS % 89.8 % (40.0-76.0); RED CELL DISTRIBUTION WIDTH 19.6 % (11.6-14.6)
[2019-01-10 05:38] LABS: CHLORIDE 96 mEq/L (98-107)
[2019-01-10 05:46] LABS: PHOSPHORUS 4.8 mg/dL (2.5-4.9)
[2019-01-10] MEDS: FUROSEMIDE 20MG/2ML VIAL IVP SCH (06:25)
[2019-01-10 08:04] LABS: BG BASE EXCESS 13.7 mmol/L (-2.0-2.0); BG CARBOXYHEMOGLOBIN 0.5 % (0.5-1.5); BG FRACTION INSPIRED OXYGEN 50; BG HCO3 ACT 44.9 mmol/L (22.0-26.0); BG METHEMOGLOBIN 0.4 % (0.0-1.5); BG OXYHEMOGLOBIN 94.1 % (94.0-97.0); BG PCO2 103.5 mmHg (35.0-45.0); BG PH 7.255 (7.350-7.450); BG PO2 90.6 mmHg (75.0-100.0); BG SAMPLE SITE RIGHT RADIAL; BG VENT MODE MASK - VENTI
[2019-01-10] MEDS ORDERED: OLANZAPINE 5MG TABLET PO SCH (09:00)
[2019-01-10] MEDS: ASPIRIN 81MG TABLET PO SCH (09:06)
[2019-01-10] MEDS: PANTOPRAZOLE SODIUM 40 MG/VIAL IV SCH (09:06)
[2019-01-10] MEDS: SPIRONOLACTONE 25MG TABLET PO SCH (09:07)
[2019-01-10] MEDS: CARVEDILOL 6.25 MG TABLET PO SCH ×2 (09:07→20:54)
[2019-01-10] MEDS: ENOXAPARIN 30MG/0.3ML SYR SUBCUT SCH (09:10)
[2019-01-10 10:07] LABS: BG BASE EXCESS 15.8 mmol/L (-2.0-2.0); BG BILEVEL POS AIRWAY PRESSURE 14/8; BG CARBOXYHEMOGLOBIN 1.3 % (0.5-1.5); BG DEOXYHEMOGLOBIN 7.9 % (0.0-5.0); BG HCO3 ACT 45.4 mmol/L (22.0-26.0); BG METHEMOGLOBIN 0.3 % (0.0-1.5); BG OXYHEMOGLOBIN 90.5 % (94.0-97.0); BG PCO2 83.6 mmHg (35.0-45.0); BG PH 7.353 (7.350-7.450); BG PO2 66.1 mmHg (75.0-100.0); BG SAMPLE SITE RIGHT RADIAL; BG TOTAL HEMOGLOBIN 13.2 g/dL (12.0-18.0); BG VENT MODE MASK - BIPAP; BG VENT RATE 22 set
[2019-01-10 11:06] LABS: MEAN PLATELET VOLUME 9.2 fl (7.4-10.4); PLATELET 62 x1000/uL (130-400)
[2019-01-10 13:53] LABS: BG BASE EXCESS 17.7 mmol/L (-2.0-2.0); BG DEOXYHEMOGLOBIN 3.2 % (0.0-5.0); BG FRACTION INSPIRED OXYGEN 50; BG HCO3 ACT 46.1 mmol/L (22.0-26.0); BG METHEMOGLOBIN 0.2 % (0.0-1.5); BG OXYGEN SATURATION 96.8 % (92.0-98.5); BG OXYHEMOGLOBIN 95.6 % (94.0-97.0); BG PCO2 75.1 mmHg (35.0-45.0); BG PH 7.406 (7.350-7.450); BG PO2 93.3 mmHg (75.0-100.0); BG SAMPLE SITE RIGHT BRACHIAL; BG TOTAL HEMOGLOBIN 12.5 g/dL (12.0-18.0); BG VENT MODE MASK - VENTI
[2019-01-10] MEDS: DIGOXIN 125MCG TABLET PO SCH (18:35)
[2019-01-10] MEDS: DEXTROSE 5% WATER 1,000 ML IV SCH (18:35)
[2019-01-10] MEDS: ATORVASTATIN CALCIUM 40MG TABLET PO SCH (20:54)
[2019-01-11] VITALS (48 sets, daily range): BP systolic 107–203; BP diastolic 23–136
[2019-01-11] MEDS: METHYLPREDNISOLONE SOD SUCC 40 MG/ML VIAL IV SCH ×3 (00:14→18:54)
[2019-01-11] MEDS: PIPERACILLIN/TAZ 3.375G PREMIX 50 ML IV SCH ×3 (05:04→22:22)
[2019-01-11] MEDS: SODIUM CHLORIDE 0.9% INJ 3ML FLUSH IVF SCH ×3 (05:05→22:22)
[2019-01-11] MEDS: BLOOD SUGAR DIAGNOSTIC STRIP TEST SCH ×4 (05:05→23:49)
[2019-01-11 06:00] LABS: HEMATOCRIT. 34.8 % (36.0-48.0); HEMOGLOBIN. 10.9 g/dL (12.0-16.0); MEAN CORPUSCULAR HEMOGLOBIN 25.3 pg (28.0-32.0); MEAN CORPUSCULAR VOLUME 80.7 fL (81.0-99.0); MEAN PLATELET VOLUME 9.8 fl (7.4-10.4); PLATELET 66 x1000/uL (130-400); RED BLOOD CELL COUNT 4.31 mill/uL (4.2-5.4); RED CELL DISTRIBUTION WIDTH 19.4 % (11.6-14.6)
[2019-01-11 06:12] LABS: CHLORIDE 94 mEq/L (98-107)
[2019-01-11 06:18] LABS: PHOSPHORUS 4.1 mg/dL (2.5-4.9)
[2019-01-11 07:35] LABS: PLATELET ESTIMATE DECREASED
[2019-01-11] MEDS ORDERED: OLANZAPINE 10MG TABLET PO SCH (09:00)
[2019-01-11] MEDS ORDERED: FUROSEMIDE 40MG/4ML VIAL IVP SCH (09:00)
[2019-01-11] MEDS ORDERED: FUROSEMIDE 20MG/2ML VIAL IVP SCH (09:00)
[2019-01-11 09:20] LABS: BG BASE EXCESS 12.5 mmol/L (-2.0-2.0); BG CARBOXYHEMOGLOBIN 0.9 % (0.5-1.5); BG DEOXYHEMOGLOBIN 3.1 % (0.0-5.0); BG FRACTION INSPIRED OXYGEN 50; BG HCO3 ACT 40.2 mmol/L (22.0-26.0); BG METHEMOGLOBIN 0.2 % (0.0-1.5); BG OXYGEN SATURATION 96.9 % (92.0-98.5); BG OXYHEMOGLOBIN 95.8 % (94.0-97.0); BG PH 7.383 (7.350-7.450); BG PO2 95.2 mmHg (75.0-100.0); BG SAMPLE SITE RIGHT RADIAL; BG TOTAL HEMOGLOBIN 11.8 g/dL (12.0-18.0); BG VENT MODE MASK - VENTI
[2019-01-11] MEDS: ENOXAPARIN 30MG/0.3ML SYR SUBCUT SCH (09:49)
[2019-01-11] MEDS: ASPIRIN 81MG TABLET PO SCH (09:49)
[2019-01-11] MEDS: SPIRONOLACTONE 25MG TABLET PO SCH (09:50)
[2019-01-11] MEDS: PANTOPRAZOLE SODIUM 40 MG/VIAL IV SCH (09:50)
[2019-01-11] MEDS: AMLODIPINE 5MG TABLET NG SCH (09:51)
[2019-01-11] MEDS: CARVEDILOL 6.25 MG TABLET PO SCH ×2 (09:51→21:00)
[2019-01-11] MEDS: DEXTROSE 5% WATER 1,000 ML IV SCH (15:15)
[2019-01-11] MEDS: ATORVASTATIN CALCIUM 40MG TABLET PO SCH (21:00)
[2019-01-11] MEDS: IPRATROPIUM/ALBUTEROL 0.5-3(2.5)MG/3ML NEB HHN PRN (21:01)
[2019-01-11 21:55] LABS: INR 1.4; PROTHROMBIN TIME 14.6 sec (9.6-11.0)
[2019-01-12] VITALS (47 sets, daily range): BP systolic 109–178; BP diastolic 41–120
[2019-01-12] MEDS: METHYLPREDNISOLONE SOD SUCC 40 MG/ML VIAL IV SCH ×3 (01:31→17:00)
[2019-01-12 06:07] LABS: MEAN CORPUSCULAR HEMOGLOBIN 25.5 pg (28.0-32.0); MEAN CORPUSCULAR VOLUME 79.7 fL (81.0-99.0); MEAN PLATELET VOLUME 10.7 fl (7.4-10.4); PLATELET 103 x1000/uL (130-400); RED CELL DISTRIBUTION WIDTH 19.7 % (11.6-14.6)
[2019-01-12] MEDS: SODIUM CHLORIDE 0.9% INJ 3ML FLUSH IVF SCH ×3 (06:12→22:00)
[2019-01-12] MEDS: PIPERACILLIN/TAZ 3.375G PREMIX 50 ML IV SCH ×3 (06:12→23:04)
[2019-01-12] MEDS: BLOOD SUGAR DIAGNOSTIC STRIP TEST SCH ×3 (06:12→18:00)
[2019-01-12 06:19] LABS: CHLORIDE 96 mEq/L (98-107)
[2019-01-12 06:31] LABS: BASOPHILS % 0.2 % (0.0-2.0); EOSINOPHILS % 0.1 % (0.0-5.0); HEMATOCRIT. 27.1 % (36.0-48.0); HEMOGLOBIN. 8.7 g/dL (12.0-16.0); LYMPHOCYTES % 11.3 % (20.0-50.0); MONOCYTES % 3.8 % (2.0-8.0); NEUTROPHILS % 84.6 % (40.0-76.0)
[2019-01-12 06:35] LABS: PHOSPHORUS 3.4 mg/dL (2.5-4.9)
[2019-01-12] MEDS: CARVEDILOL 6.25 MG TABLET PO SCH ×2 (09:00→23:03)
[2019-01-12] MEDS: SPIRONOLACTONE 25MG TABLET PO SCH (09:00)
[2019-01-12] MEDS ORDERED: PROPOFOL 10MG/ML 100ML 100 ML IV PRN (09:00)
[2019-01-12] MEDS: AMLODIPINE 5MG TABLET NG SCH (09:00)
[2019-01-12 10:57] LABS: TOTAL IRON BINDING CAPACITY 274 ug/dL (250-450)
[2019-01-12] MEDS: DEXTROSE 5% WATER 1,000 ML IV SCH (11:15)
[2019-01-12] MEDS: OLANZAPINE 5MG TABLET ODT PO SCH (14:00)
[2019-01-12 15:36] LABS: BG BASE EXCESS 18.8 mmol/L (-2.0-2.0); BG CARBOXYHEMOGLOBIN 0.9 % (0.5-1.5); BG DEOXYHEMOGLOBIN 2.7 % (0.0-5.0); BG FRACTION INSPIRED OXYGEN 34; BG HCO3 ACT 46.2 mmol/L (22.0-26.0); BG METHEMOGLOBIN 0.4 % (0.0-1.5); BG OXYGEN SATURATION 97.3 % (92.0-98.5); BG PCO2 78.3 mmHg (35.0-45.0); BG PH 7.389 (7.350-7.450); BG PO2 119.3 mmHg (75.0-100.0); BG SAMPLE SITE RIGHT RADIAL; BG TOTAL HEMOGLOBIN 8.2 g/dL (12.0-18.0); BG VENT MODE ROOM AIR
[2019-01-12] MEDS: PANTOPRAZOLE SODIUM 40 MG/VIAL IV SCH (17:00)
[2019-01-12] MEDS ORDERED: PHYTONADIONE 10MG/ML AMP SUBCUT NR (19:00)
[2019-01-12 20:51] LABS: HEMATOCRIT 22.6 % (36.0-48.0); HEMOGLOBIN 7.2 g/dL (12.0-16.0)
[2019-01-12] MEDS: ATORVASTATIN CALCIUM 40MG TABLET PO SCH (23:03)
[2019-01-13] VITALS (77 sets, daily range): BP systolic 112–165; BP diastolic 30–121
[2019-01-13] MEDS: BLOOD SUGAR DIAGNOSTIC STRIP TEST SCH ×4 (00:03→18:00)
[2019-01-13] MEDS: METHYLPREDNISOLONE SOD SUCC 40 MG/ML VIAL IV SCH ×2 (01:52→08:37)
[2019-01-13] MEDS: SODIUM CHLORIDE 0.9% INJ 3ML FLUSH IVF SCH ×3 (05:18→22:29)
[2019-01-13 06:34] LABS: CHLORIDE 98 mEq/L (98-107)
[2019-01-13 06:39] LABS: PHOSPHORUS 3.9 mg/dL (2.5-4.9)
[2019-01-13 06:41] LABS: HEMATOCRIT. 28.2 % (36.0-48.0); HEMOGLOBIN. 9.2 g/dL (12.0-16.0); MEAN CORPUSCULAR HEMOGLOBIN 25.6 pg (28.0-32.0); MEAN CORPUSCULAR VOLUME 78.8 fL (81.0-99.0); MEAN PLATELET VOLUME 9.6 fl (7.4-10.4); PLATELET 61 x1000/uL (130-400); RED BLOOD CELL COUNT 3.58 mill/uL (4.2-5.4); RED CELL DISTRIBUTION WIDTH 18.5 % (11.6-14.6)
[2019-01-13 08:25] LABS: ATYPICAL LYMPHOCYTES 1; PLATELET ESTIMATE DECREASED
[2019-01-13] MEDS: DEXTROSE 5% WATER 1,000 ML IV SCH (08:36)
[2019-01-13] MEDS: PANTOPRAZOLE SODIUM 40 MG/VIAL IV SCH ×2 (08:36→17:00)
[2019-01-13] MEDS: OLANZAPINE 5MG TABLET ODT PO SCH (08:36)
[2019-01-13] MEDS: AMLODIPINE 5MG TABLET NG SCH (08:37)
[2019-01-13] MEDS: CARVEDILOL 6.25 MG TABLET PO SCH ×2 (08:37→20:52)
[2019-01-13] MEDS: SPIRONOLACTONE 25MG TABLET PO SCH (08:37)
[2019-01-13] MEDS ORDERED: SIMETHICONE 40 MG/0.6 ML 30ML ONE (10:46)
[2019-01-13] MEDS ORDERED: PROPOFOL 200MG/20ML VIAL IV ONE (11:47)
[2019-01-13] MEDS ORDERED: LIDOCAINE HCL/PF 1% 10 MG/ML 5ML VIAL ONE (11:47)
[2019-01-13 12:42] LABS: BG BASE EXCESS 16.3 mmol/L (-2.0-2.0); BG CARBOXYHEMOGLOBIN 0.5 % (0.5-1.5); BG DEOXYHEMOGLOBIN 2.5 % (0.0-5.0); BG FRACTION INSPIRED OXYGEN 32; BG HCO3 ACT 44.8 mmol/L (22.0-26.0); BG METHEMOGLOBIN 0.4 % (0.0-1.5); BG OXYGEN SATURATION 97.5 % (92.0-98.5); BG OXYHEMOGLOBIN 96.6 % (94.0-97.0); BG PCO2 80.7 mmHg (35.0-45.0); BG PH 7.362 (7.350-7.450); BG SAMPLE SITE RIGHT RADIAL; BG TOTAL HEMOGLOBIN 10.6 g/dL (12.0-18.0); BG VENT MODE NASAL CANNULA
[2019-01-13 14:06] LABS: INR 1.4; PARTIAL THROMBOPLASTIN TIME 29.5 sec (23.4-31.0); PROTHROMBIN TIME 14.1 sec (9.6-11.0)
[2019-01-13] MEDS ORDERED: LORAZEPAM 2MG/ML CPJ IV PRN (19:30)
[2019-01-13] MEDS: ATORVASTATIN CALCIUM 40MG TABLET PO SCH (20:51)
[2019-01-14] VITALS (36 sets, daily range): BP systolic 106–163; BP diastolic 42–79
[2019-01-14] MEDS: BLOOD SUGAR DIAGNOSTIC STRIP TEST SCH ×5 (00:40→23:27)
[2019-01-14] MEDS: DEXTROSE 5% WATER 1,000 ML IV SCH ×2 (00:41→23:27)
[2019-01-14 05:06] LABS: HEMATOCRIT. 32.9 % (36.0-48.0); HEMOGLOBIN. 10.7 g/dL (12.0-16.0); LYMPHOCYTES % 8.6 % (20.0-50.0); MEAN CORPUSCULAR VOLUME 79.9 fL (81.0-99.0); MEAN PLATELET VOLUME 9.6 fl (7.4-10.4); NEUTROPHILS % 81.4 % (40.0-76.0); PLATELET 84 x1000/uL (130-400); RED BLOOD CELL COUNT 4.12 mill/uL (4.2-5.4); RED CELL DISTRIBUTION WIDTH 17.7 % (11.6-14.6)
[2019-01-14 05:46] LABS: CHLORIDE 98 mEq/L (98-107)
[2019-01-14 05:52] LABS: PHOSPHORUS 3.6 mg/dL (2.5-4.9)
[2019-01-14] MEDS: SODIUM CHLORIDE 0.9% INJ 3ML FLUSH IVF SCH ×3 (06:17→22:00)
[2019-01-14] MEDS: OLANZAPINE 5MG TABLET ODT PO SCH (09:39)
[2019-01-14] MEDS: FUROSEMIDE 40MG/4ML VIAL IVP SCH (09:40)
[2019-01-14] MEDS: PANTOPRAZOLE SODIUM 40 MG/VIAL IV SCH ×2 (09:40→18:28)
[2019-01-14] MEDS: SPIRONOLACTONE 25MG TABLET PO SCH (09:40)
[2019-01-14] MEDS: AMLODIPINE 5MG TABLET NG SCH (09:40)
[2019-01-14] MEDS: CARVEDILOL 6.25 MG TABLET PO SCH ×2 (09:41→20:34)
[2019-01-14 17:02] LABS: BG BASE EXCESS 15.3 mmol/L (-2.0-2.0); BG CARBOXYHEMOGLOBIN 0.5 % (0.5-1.5); BG FRACTION INSPIRED OXYGEN 34; BG HCO3 ACT 42.6 mmol/L (22.0-26.0); BG METHEMOGLOBIN 0.3 % (0.0-1.5); BG OXYHEMOGLOBIN 95.2 % (94.0-97.0); BG PCO2 67.6 mmHg (35.0-45.0); BG PH 7.417 (7.350-7.450); BG PO2 84.1 mmHg (75.0-100.0); BG SAMPLE SITE RIGHT RADIAL; BG TOTAL HEMOGLOBIN 11.5 g/dL (12.0-18.0); BG VENT MODE NASAL CANNULA
[2019-01-14] MEDS: ATORVASTATIN CALCIUM 40MG TABLET PO SCH (20:34)
[2019-01-15] VITALS (12 sets, daily range): BP systolic 95–145; BP diastolic 43–75
[2019-01-15 05:48] LABS: HEMATOCRIT. 33.8 % (36.0-48.0); HEMOGLOBIN. 10.9 g/dL (12.0-16.0); MEAN CORPUSCULAR HEMOGLOBIN 25.7 pg (28.0-32.0); MEAN PLATELET VOLUME 9.2 fl (7.4-10.4); PLATELET 86 x1000/uL (130-400); RED BLOOD CELL COUNT 4.23 mill/uL (4.2-5.4)
[2019-01-15 05:53] LABS: CHLORIDE 100 mEq/L (98-107)
[2019-01-15] MEDS: SODIUM CHLORIDE 0.9% INJ 3ML FLUSH IVF SCH ×3 (06:00→21:17)
[2019-01-15] MEDS: BLOOD SUGAR DIAGNOSTIC STRIP TEST SCH ×3 (06:47→18:00)
[2019-01-15 08:20] LABS: BG BASE EXCESS 11.2 mmol/L (-2.0-2.0); BG CARBOXYHEMOGLOBIN 0.5 % (0.5-1.5); BG DEOXYHEMOGLOBIN 7.8 % (0.0-5.0); BG FRACTION INSPIRED OXYGEN 28; BG HCO3 ACT 37.9 mmol/L (22.0-26.0); BG METHEMOGLOBIN 0.3 % (0.0-1.5); BG OXYGEN SATURATION 92.1 % (92.0-98.5); BG OXYHEMOGLOBIN 91.4 % (94.0-97.0); BG PCO2 61.1 mmHg (35.0-45.0); BG PO2 65.7 mmHg (75.0-100.0); BG SAMPLE SITE RIGHT RADIAL; BG TOTAL HEMOGLOBIN 11.3 g/dL (12.0-18.0); BG VENT MODE NASAL CANNULA
[2019-01-15] MEDS: CARVEDILOL 6.25 MG TABLET PO SCH (09:00)
[2019-01-15] MEDS: AMLODIPINE 5MG TABLET NG SCH (09:00)
[2019-01-15] MEDS: FUROSEMIDE 40MG/4ML VIAL IVP SCH (10:38)
[2019-01-15] MEDS: PANTOPRAZOLE SODIUM 40 MG/VIAL IV SCH (10:39)
[2019-01-15] MEDS: OLANZAPINE 5MG TABLET ODT PO SCH (10:39)
[2019-01-15] MEDS: SPIRONOLACTONE 25MG TABLET PO SCH (10:40)
[2019-01-15] MEDS ORDERED: LORAZEPAM 2MG/ML CPJ IV PRN (13:30)
[2019-01-15] MEDS ORDERED: LIDOCAINE HCL/PF 1% 2ML VIAL ONE (13:32)
[2019-01-15] MEDS: DEXT 5% WATER + KCL 20MEQ/L 1,000 ML IV SCH (14:17)
[2019-01-15 16:49] LABS: INR 1.4; PROTHROMBIN TIME 14.4 sec (9.6-11.0)
[2019-01-15] MEDS: CARVEDILOL 3.125 MG TABLET PO SCH (20:23)
[2019-01-15] MEDS: ATORVASTATIN CALCIUM 40MG TABLET PO SCH (20:23)
[2019-01-15 21:04] LABS: PLATELET ESTIMATE DECREASED
[2019-01-16] VITALS (11 sets, daily range): BP systolic 113–151; BP diastolic 60–100
[2019-01-16] MEDS: BLOOD SUGAR DIAGNOSTIC STRIP TEST SCH ×5 (00:32→23:41)
[2019-01-16 05:34] LABS: BASOPHILS % 0.2 % (0.0-2.0); EOSINOPHILS % 2.2 % (0.0-5.0); HEMATOCRIT. 32.4 % (36.0-48.0); HEMOGLOBIN. 10.6 g/dL (12.0-16.0); LYMPHOCYTES % 10.9 % (20.0-50.0); MEAN CORPUSCULAR VOLUME 79.9 fL (81.0-99.0); MEAN PLATELET VOLUME 8.9 fl (7.4-10.4); MONOCYTES % 7.6 % (2.0-8.0); NEUTROPHILS % 79.1 % (40.0-76.0); PLATELET 97 x1000/uL (130-400); RED BLOOD CELL COUNT 4.06 mill/uL (4.2-5.4); RED CELL DISTRIBUTION WIDTH 18.2 % (11.6-14.6)
[2019-01-16 05:43] LABS: CHLORIDE 102 mEq/L (98-107)
[2019-01-16] MEDS: SODIUM CHLORIDE 0.9% INJ 3ML FLUSH IVF SCH ×3 (06:01→23:12)
[2019-01-16] MEDS: DEXT 5% WATER + KCL 20MEQ/L 1,000 ML IV SCH (06:11)
[2019-01-16] MEDS: DEXTROSE 50% WATER 50ML SYRINGE IV PRN (06:11)
[2019-01-16 08:43] LABS: BG BASE EXCESS 15.7 mmol/L (-2.0-2.0); BG CARBOXYHEMOGLOBIN 1.4 % (0.5-1.5); BG DEOXYHEMOGLOBIN 3.3 % (0.0-5.0); BG FRACTION INSPIRED OXYGEN 28; BG HCO3 ACT 42.6 mmol/L (22.0-26.0); BG METHEMOGLOBIN 0.1 % (0.0-1.5); BG OXYGEN SATURATION 96.6 % (92.0-98.5); BG OXYHEMOGLOBIN 95.2 % (94.0-97.0); BG PCO2 65.7 mmHg (35.0-45.0); BG PO2 90.9 mmHg (75.0-100.0); BG SAMPLE SITE RIGHT RADIAL; BG TOTAL HEMOGLOBIN 11.1 g/dL (12.0-18.0); BG VENT MODE NASAL CANNULA
[2019-01-16] MEDS ORDERED: SODIUM PHOS,M-BASIC-D-BASIC 15 MM in DEXT 5% WATER 245 ML IV SCH (10:00)
[2019-01-16] MEDS: PANTOPRAZOLE SODIUM 40 MG/VIAL IV SCH (10:12)
[2019-01-16] MEDS: AMLODIPINE 2.5MG TABLET NG SCH (10:13)
[2019-01-16] MEDS: CARVEDILOL 3.125 MG TABLET PO SCH ×2 (10:13→21:44)
[2019-01-16] MEDS: ATORVASTATIN CALCIUM 40MG TABLET PO SCH (21:43)
[2019-01-16] MEDS: ONDANSETRON HCL 4MG/2ML INJ IV PRN (23:12)
[2019-01-17] VITALS (8 sets, daily range): BP systolic 93–123; BP diastolic 56–69
[2019-01-17] MEDS: ONDANSETRON HCL 4MG/2ML INJ IV PRN (05:05)
[2019-01-17] MEDS: SODIUM CHLORIDE 0.9% INJ 3ML FLUSH IVF SCH (05:49)
[2019-01-17] MEDS: BLOOD SUGAR DIAGNOSTIC STRIP TEST SCH ×2 (05:49→12:00)
[2019-01-17] MEDS: AMLODIPINE 2.5MG TABLET NG SCH (09:00)
[2019-01-17] MEDS: PANTOPRAZOLE SODIUM 40 MG/VIAL IV SCH (09:55)
[2019-01-17] MEDS: CARVEDILOL 3.125 MG TABLET PO SCH (09:56)
[2019-01-17 12:04] LABS: BASOPHILS % 0.3 % (0.0-2.0); EOSINOPHILS % 2.9 % (0.0-5.0); HEMOGLOBIN. 9.9 g/dL (12.0-16.0); LYMPHOCYTES % 14.3 % (20.0-50.0); MEAN CORPUSCULAR HEMOGLOBIN 25.9 pg (28.0-32.0); MEAN CORPUSCULAR VOLUME 80.7 fL (81.0-99.0); MEAN PLATELET VOLUME 9.7 fl (7.4-10.4); NEUTROPHILS % 75.5 % (40.0-76.0); PLATELET 110 x1000/uL (130-400); RED BLOOD CELL COUNT 3.84 mill/uL (4.2-5.4); RED CELL DISTRIBUTION WIDTH 18.1 % (11.6-14.6)
[2019-01-17 12:11] LABS: CHLORIDE 104 mEq/L (98-107)
[2019-01-17 12:16] LABS: PHOSPHORUS 2.4 mg/dL (2.5-4.9)
== END 2019-01-17 13:58 | disposition home or self-care (01) | DRG 130 ==
LOC: ER 08:15 → MICUSO 10:07 → CANRESERV 14:33 → ENRESERV 14:33 → EDBEDREQ 15:45 → EDBEDREQTM 15:45 → EDBEDREQSVC 15:45 → ENRESERV 18:32 → 5EST 01-14 08:20
PROVIDERS: ADMIT Ophthalmology; ATTEND Ophthalmology
PROC: 5A1955Z Respiratory Ventilation, Greater than 96 Consecutive Hours (ICD-10-PCS; principal; 2019-01-05)
PROC: 0BH17EZ Insertion of Endotracheal Airway into Trachea, Via Natural or Artificial Opening (ICD-10-PCS; 2019-01-05)
PROC: 5A09357 Assistance with Respiratory Ventilation, Less than 24 Consecutive Hours, Continuous Positive Airway Pressure (ICD-10-PCS; 2019-01-05)
PROC: 30233K1 Transfusion of Nonautologous Frozen Plasma into Peripheral Vein, Percutaneous Approach (ICD-10-PCS; 2019-01-07)
PROC: 02HV33Z Insertion of Infusion Device into Superior Vena Cava, Percutaneous Approach (ICD-10-PCS; 2019-01-08)
PROC: B548ZZA Ultrasonography of Superior Vena Cava, Guidance (ICD-10-PCS; 2019-01-08)
PROC: 5A09357 Assistance with Respiratory Ventilation, Less than 24 Consecutive Hours, Continuous Positive Airway Pressure (ICD-10-PCS; 2019-01-10)
PROC: 0DJ08ZZ Inspection of Upper Intestinal Tract, Via Natural or Artificial Opening Endoscopic (ICD-10-PCS; 2019-01-13)
PROC: 30233N1 Transfusion of Nonautologous Red Blood Cells into Peripheral Vein, Percutaneous Approach (ICD-10-PCS; 2019-01-13)
DX: J96.01 Acute respiratory failure with hypoxia (principal); G92 Toxic encephalopathy; I50.43 Acute on chronic combined systolic (congestive) and diastolic (congestive) heart failure; J18.1 Lobar pneumonia, unspecified organism; E46 Unspecified protein-calorie malnutrition; D68.9 Coagulation defect, unspecified; D69.6 Thrombocytopenia, unspecified; N17.9 Acute kidney failure, unspecified; N18.3 Chronic kidney disease, stage 3 (moderate); E87.0 Hyperosmolality and hypernatremia; I13.0 Hypertensive heart and chronic kidney disease with heart failure and stage 1 through stage 4 chronic kidney disease, or unspecified chronic kidney disease; I31.3 Pericardial effusion (noninflammatory); J44.0 Chronic obstructive pulmonary disease with (acute) lower respiratory infection; E87.6 Hypokalemia; E78.5 Hyperlipidemia, unspecified; I27.81 Cor pulmonale (chronic); E16.2 Hypoglycemia, unspecified; D50.0 Iron deficiency anemia secondary to blood loss (chronic); E83.42 Hypomagnesemia; F14.129 Cocaine abuse with intoxication, unspecified; E87.2 Acidosis; F12.90 Cannabis use, unspecified, uncomplicated; F17.210 Nicotine dependence, cigarettes, uncomplicated; F20.9 Schizophrenia, unspecified; I25.10 Atherosclerotic heart disease of native coronary artery without angina pectoris; I25.2 Old myocardial infarction; I08.0 Rheumatic disorders of both mitral and aortic valves; I42.0 Dilated cardiomyopathy; J96.02 Acute respiratory failure with hypercapnia; K44.9 Diaphragmatic hernia without obstruction or gangrene; R04.0 Epistaxis; F99 Mental disorder, not otherwise specified; E66.9 Obesity, unspecified; F41.9 Anxiety disorder, unspecified; F19.10 Other psychoactive substance abuse, uncomplicated; R17 Unspecified jaundice; R18.8 Other ascites; Z78.1 Physical restraint status; Z82.49 Family history of ischemic heart disease and other diseases of the circulatory system; Z91.19 Patient's noncompliance with other medical treatment and regimen; Z88.6 Allergy status to analgesic agent; Z79.82 Long term (current) use of aspirin; Z79.899 Other long term (current) drug therapy; Z68.26 Body mass index [BMI] 26.0-26.9, adult
CPT/HCPCS: 36415; 36569; 36600; 71045; 71250; 74018; 74176; 76604; 76700; 76705; 76937; 80048; 80162; 80305; 82140; 82270; 82375; 82550; 82728; 82805; 82962; 83036; 83540; 83550; 83735; 83880; 84100; 84478; 84484; 85014; 85018; 86022; 86850; 86900; 86920; 86927; 87070; 92610; 93005; 93306; 93970; 94003; 94640; 94660; 96365; 96367; 96375; 97162; 97530; 99291; C1725; C9113; J1650; J1940; J1956; J2060; J2250; J2405; J2543; J2704; J2920; J3430; J3475; J3480; J3490; J7050; J7060; J7070; J7620; J7626; P9016; P9017